=== PATIENT | male | born 1965 | race Caucasian/White ===

== ENCOUNTER 2018-07-08 12:35 | Emergency (ER) | payer OTHER ==
[2018-07-08] MEDS ORDERED: Fluorescein Sodium TOPICAL* 1 MG TEST STRIP ONE (12:57)
[2018-07-08] MEDS ORDERED: Fluorescein Sodium TOPICAL* 1 MG TEST STRIP OPHTHALMIC ONE (12:57)
[2018-07-08] MEDS ORDERED: Tetracaine 0.5% OPTH.SOL 4 ML* 1 DROP BTL ONE (13:01)
[2018-07-08] MEDS: Tetracaine 0.5% OPTH.SOL 4 ML* 1 DROP BTL RIGHT EYE ONE ×2 (13:04→13:41)
[2018-07-08] MEDS ORDERED: HYDROcodone/ACETAMIN 5-325 MG* 1 TAB PO ONE (13:32)
[2018-07-08] MEDS ORDERED: traMADol TAB* 50 MG PO ONE (13:39)
--- NOTE | 2018-07-08 13:45 | ED ---
Throat Pain/Nasal Congestion - HPI Summary HPI Summary: Patient is a 53-year-old male presenting to the ED with right eye complaint. He states starting yesterday he developed eye irritation with erythema and drainage. He does not recall coming something into the eye. He is not a contact lens wearer. He has close follow-up with his aircraft quality control inspector, Dr. Landon. He states due to this being Monday he has not called his aircraft quality control inspector. He denies any decreased vision, however due to the pain, he has not been opening the eye. He does endorse rubbing the eye for comfort. He states the area began with itching and developed into pain. - History of Current Complaint Chief Complaint: EDEyeProblem Time Seen by Provider: 07/08/18 12:46 Hx Obtained From: Patient Onset/Duration: Sudden Onset Severity: Moderate - Epiglottits Risk Factors Epiglottis Risk Factors: Negative - Allergies/Home Medications Allergies/Adverse Reactions: Allergies Allergy/AdvReac Type Severity Reaction Status Date / Time YESSICA Inhibitors Allergy Coughing Verified 07/08/18 12:44 Adhesive Tape Allergy See Comment Verified 07/08/18 12:44 amoxicillin [From Augmentin] Allergy Hives Verified 07/08/18 12:44 clavulanic acid Allergy Hives Verified 07/08/18 12:44 [From Augmentin] losartan Allergy Hives Verified 07/08/18 12:44 anesthesia Allergy See Comment Uncoded 07/08/18 12:44 PMH/Surg Hx/FS Hx/Imm Hx Previously Healthy: Yes Endocrine/Hematology History: Denies: Hx Diabetes Cardiovascular History: Reports: Hx Hypertension - ON MEDS FOR Denies: Hx Pacemaker/ICD History: Denies: Hx Renal Disease Sensory History: Denies: Hx Hearing Aid Psychiatric History: Denies: Hx Panic Disorder - Surgical History Surgery Procedure, Year, and Place: GALLBLADDER REMOVED ;. WISDOM TEETH REMOVE 1978; - Immunization History Hx Pertussis Vaccination: No Immunizations Up to Date: Yes Infectious Disease History: No Infectious Disease History: Denies: Traveled Outside the [place] in Last 30 Days - Social History Occupation: Employed Full-time Lives: With Family Alcohol Use: None Hx Substance Use: No Substance Use Type: Reports: None Smoking Status (MU): Never Smoked Tobacco Review of Systems Constitutional: Negative Negative: Fever, Chills, Fatigue, Skin Diaphoresis Positive: Photophobia, Drainage, Erythema. Negative: Blurred Vision, Diplopia Negative: Palpitations, Chest Pain Negative: Cough Genitourinary: Negative Positive: no symptoms reported, see HPI Negative: Rash, Bruising Neurological: Negative All Other Systems Reviewed And Are Negative: Yes Physical Exam Triage Information Reviewed: Yes Vital Signs On Initial Exam: Initial Vitals Temp Pulse Resp BP Pulse Ox 97.9 F 55 16 152/94 98 07/08/18 12:39 07/08/18 12:39 07/08/18 12:39 07/08/18 12:39 07/08/18 12:39 Vital Signs Reviewed: Yes Appearance: Positive: Well-Appearing, Well-Nourished Skin: Positive: Warm, Skin Color Reflects Adequate Perfusion Head/Face: Positive: Normal Head/Face Inspection Eyes: Positive: Conjunctiva Inflammed, Discharge, Other: - small .1cm corneal ulcer to the inferior portion of the eye over IRIS Neck: Positive: Supple, No Lymphadenopathy Respiratory/Lung Sounds: Positive: Clear to Auscultation, Breath Sounds Present Cardiovascular: Positive: RRR, Pulses are Symmetrical in both Upper and Lower Extremities Musculoskeletal: Positive: Normal, Strength/ROM Intact Neurological: Positive: Speech Normal Psychiatric: Positive: Normal, Affect/Mood Appropriate Diagnostics - Vital Signs Vital Signs Temp Pulse Resp BP Pulse Ox 07/08/18 12:39 97.9 F 55 16 152/94 98 - Laboratory Lab Statement: Any lab studies that have been ordered have been reviewed, and results considered in the medical decision making process. EENT Course/Dx - Course Course Of Treatment: On physical examination, there is a small 0.1 cm in diameter white area to the inferior portion of the cornea directly over the iris resembling a corneal ulcer. Fluorescein uptake is to this area. There are no other signs of abrasions or foreign bodies to the eye. Conjunctival injection throughout, clear tearing from the right eye. Tetracaine drops with good improvement. Tramadol given for pain control. He will f/u with opthomology tomorrow morning. He understands if he is unable to get in to see ophthalmology tomorrow morning, he will return to the ED. He also understands if he has any worsening or changing symptoms he'll return to the ED. He is given erythromycin ointment and is to apply this every 3 hours, even overnight until he sees ophthalmology tomorrow. - Differential Diagnoses Differential Diagnoses: Conjunctivitis, Corneal Abrasion - Diagnoses Provider Diagnoses: Corneal ulcer Discharge - Sign-Out/Discharge Documenting (check all that apply): Patient Departure Patient Received Moderate/Deep Sedation with Procedure: No - Discharge Plan Condition: Stable Disposition: HOME Prescriptions: traMADol TAB* [Ultram*] 50 mg PO Q8H PRN #8 tab MDD 3 PRN Reason: Pain Patient Education Materials: Corneal Ulcer (ED) Referrals: Dajuan Patino MD [Primary Care Provider] - Joselito Booth MD [Medical Doctor] - Additional Instructions: Erythromycin ointment - apply six times daily to the eye Follow up with aircraft quality control inspector tomorrow Call tomorrow morning to make appt - Billing Disposition and Condition Condition: STABLE Disposition: Home Images - Images Eyes: 1 - white area measuring .1cm with uptake resembling corneal ulcer
[2018-07-08 13:55] VITALS: BP 139/88
[2018-07-08] MEDS ORDERED: Erythromycin OPTH OINT* APPLIC OINT SCH (14:00)
== END 2018-07-08 13:55 | disposition home or self-care (01) ==
LOC: ED 12:35
DX: H16.001 Unspecified corneal ulcer, right eye (principal); I10 Essential (primary) hypertension; Z88.4 Allergy status to anesthetic agent; Z88.1 Allergy status to other antibiotic agents; Z88.0 Allergy status to penicillin; Z88.8 Allergy status to other drugs, medicaments and biological substances; Z91.048 Other nonmedicinal substance allergy status
CPT/HCPCS: 99282; A9270-GY